=== PATIENT | male | born 1995 | race American Indian/Alaskan Native ===

== ENCOUNTER 2017-07-25 11:28 | Emergency (ER) | payer SELFPAY ==
[2017-07-25 12:19] VITALS: BP 103/84
--- NOTE | 2017-07-25 17:07 | Emergency Department Report ---
Minor Respiratory - HPI Chief Complaint: Sore Throat Stated Complaint: SORE THROAT Time Seen by Provider: 07/25/17 15:13 Duration: 3 Days Pain Location: Throat (sore) Severity: mild Minor Respiratory: Yes Rhinorrhea, Yes Sore Throat, Yes Able to Tolerate Fluids , Yes Cough, Yes Sick Contacts, No Ear Pain, No Hemoptysis, No Chest Pain, No Shortness of Breath, No Fever Other History: This is a 22 y.o. male presents with sore throat and headache for 3 days. He is taking tylenol and theraflu for 1 day. "Several people at work have been sick". Patient states he never had a fever. He increased fluid intake but appetite is decreased. Denies fever, SOB, muscle aches, chest pain, nausea and vomiting. ED Review of Systems ROS: Stated complaint: SORE THROAT Other details as noted in HPI Constitutional: denies: chills, fever ENT: throat pain. denies: ear pain, dental pain, hearing loss, epistaxis, congestion Respiratory: denies: cough, shortness of breath, wheezing Cardiovascular: denies: chest pain, palpitations Gastrointestinal: denies: abdominal pain, nausea, diarrhea Musculoskeletal: denies: back pain, joint swelling, arthralgia Neurological: headache. denies: weakness, paresthesias ED Past Medical Hx - Past Medical History Previous Medical History?: No - Surgical History Past Surgical History?: No - Social History Smoking Status: Never Smoker Substance Use Type: None Minor Respiratory Exam - Exam General: Vital signs noted. No distress. Alert and acting appropriately. HEENT: Yes Pharyngeal Erythema, Yes Moist Mucous Membranes, Yes Rhinorrhea, No Pharyngeal Exudates, No Conjuctival Injection, No Frontal Tenderness, No Maxillary Tenderness Ear: Neither TM Bulge, Neither TM Erythema, Neither EAC Pain, Neither EAC Discharge Neck: No Adenopathy Lungs: Yes Good Air Exchange, No Wheezes, No Ronchi, No Stridor, No Cough, No Labored Respirations, No Retractions, No Use of Accessory Muscles, No Other Abnormal Lung Sounds Heart: Yes Regular, No Murmur Abdomen: Yes Normal Bowel Sounds, No Tenderness, No Peritoneal Signs Skin: No Rash, No Edema Neurologic: Alert and oriented, no deficits. Musculoskeletal: Unremarkable. ED Course Vital Signs 07/25/17 12:16 Temperature 98.5 F Pulse Rate 86 Respiratory 16 Rate Blood Pressure 103/84 O2 Sat by Pulse 99 Oximetry ED Medical Decision Making - Medical Decision Making This is a 22 y.o. male presents with sore throat and headache for 3 days. He is taking tylenol and nyquil minimal improvement. Tolerating fluids and appetite decreased. Obtained rapid strep, negative. Treated for laryngitis and treating outpatient with supportive care. Discussed plan of care with patient and agreed with plan. Discharged home in stable condition. F/U with PCP in 3 days if symptoms are worse.. Critical care attestation.: If time is entered above; I have spent that time in minutes in the direct care of this critically ill patient, excluding procedure time. ED Disposition Clinical Impression: Laryngitis Disposition: DC- TO HOME OR SELFCARE Is pt being admited?: No Does the pt Need Aspirin: No Condition: Stable Instructions: Laryngitis (ED), Upper Respiratory Infection (ED) Additional Instructions: Increase fluid intake. Continue using tylenol and ibuprofen for pain. Vocal rest can help decrease sore throat. Use lasagnes for symptomatic relief. Follow up with Primary Care Provider if symptoms persist beyond 3 days. Referrals: [facility] [Outside] - 3-5 Days [facility] [Outside] - 3-5 Days Time of Disposition: 17:26 Print Language: NORTHER[place] IRISH
== END 2017-07-25 17:34 | disposition home or self-care (01) ==
LOC: ED 11:28
DX: J04.0 Acute laryngitis (principal)
CPT/HCPCS: 87430; 99282

== ENCOUNTER 2019-01-12 02:23 | Emergency (ER) | payer SELFPAY ==
[2019-01-12 02:52] VITALS: BP 121/80
[2019-01-12 03:29] LABS: Basophils % (Auto) 0.7 % (0.0-1.8); Eosinophils # (Auto) 0.3 K/mm3 (0.0-0.4); Eosinophils % (Auto) 4.4 % (0.0-4.3); Lymphocytes # (Auto) 2.8 K/mm3 (1.2-5.4); Lymphocytes % (Auto) 45.3 % (13.4-35.0); Mean Corpuscular HGB Conc 34 % (32-34); Mean Corpuscular Volume 96 fl (84-94); Monocytes # (Auto) 0.8 K/mm3 (0.0-0.8); Monocytes % (Auto) 13.1 % (0.0-7.3); Platelet Count 234 K/mm3 (140-440); Red Blood Count 4.91 M/mm3 (3.65-5.03); Red Cell Distribution Width 13.7 % (13.2-15.2)
[2019-01-12 03:43] LABS: Bilirubin,Urine NEG (Negative); Blood,Urine NEG (Negative); Color,Urine Yellow (Yellow); Mucus,Urine FEW /HPF; Protein,Urine <15 mg/dL mg/dL (Negative); Urobilinogen,Urine < 2.0 mg/dL (<2.0); WBC,Urine < 1.0 /HPF (0.0-6.0)
[2019-01-12 03:45] LABS: Alanine Aminotransferase 11 units/L (7-56); Albumin 4.1 g/dL (3.9-5); BUN/Creatinine Ratio 12; Blood Urea Nitrogen 13 mg/dL (9-20); Calcium 8.9 mg/dL (8.4-10.2); Hemolysis Index 16
[2019-01-12] MEDS ORDERED: PEPCID PO ONE (04:03)
[2019-01-12] MEDS ORDERED: ZOFRAN ODT PO ONE (04:03)
--- NOTE | 2019-01-12 04:11 | Emergency Department Report ---
ED Abdominal Pain HPI - General Chief Complaint: Abdominal Pain Stated Complaint: TOOTHACHE/HEADACHE/VOMITING/ABDOMINAL Time Seen by Provider: 01/12/19 04:01 Source: patient Mode of arrival: Ambulatory Limitations: No Limitations - History of Present Illness Initial Comments: This is a 23-year-old female presents to ED complaining of left upper quadrant abdominal pain that started yesterday morning. Patient states that the security the day before. Patient states that he had one episode of vomiting and no other symptoms. Patient also states that he is taking Motrin earlier for toothache that he's been having for the past 2 days. Patient states toothache is localized to the lower left denture. MD Complaint: abdominal pain Location: LUQ Radiation: none Migration to: no migration Severity scale (0 -10): 4 Quality: aching Consistency: intermittent Context: possible food poisoning Associated Symptoms: vomiting (1 episode). denies: diarrhea, fever, chills, constipation - Related Data Previous Rx's Medication Instructions Recorded Last Taken Type Amoxicillin [Amoxicillin TAB] 875 mg PO BID #14 tablet 01/12/19 Unknown Rx Dicyclomine [Bentyl] 10 mg PO TID #21 capsule 01/12/19 Unknown Rx Famotidine [Pepcid] 20 mg PO BID #20 tablet 01/12/19 Unknown Rx Ondansetron [Zofran ODT TAB] 4 mg PO Q8H #20 tab.rapdis 01/12/19 Unknown Rx Allergies Allergy/AdvReac Type Severity Reaction Status Date / Time No Known Allergies Allergy Verified 07/25/17 12:16 ED Review of Systems ROS: Stated complaint: TOOTHACHE/HEADACHE/VOMITING/ABDOMINAL Other details as noted in HPI Comment: All other systems reviewed and negative ED Past Medical Hx - Past Medical History Previous Medical History?: Yes Hx Asthma: Yes - Surgical History Past Surgical History?: No - Social History Smoking Status: Current Every Day Smoker Substance Use Type: None - Medications Home Medications: Home Medications Medication Instructions Recorded Confirmed Last Taken Type Amoxicillin [Amoxicillin TAB] 875 mg PO BID #14 tablet 01/12/19 Unknown Rx Dicyclomine [Bentyl] 10 mg PO TID #21 capsule 01/12/19 Unknown Rx Famotidine [Pepcid] 20 mg PO BID #20 tablet 01/12/19 Unknown Rx Ondansetron [Zofran ODT TAB] 4 mg PO Q8H #20 tab.rapdis 01/12/19 Unknown Rx ED Physical Exam - General Limitations: No Limitations General appearance: alert, in no apparent distress - Head Head exam: Present: atraumatic, normocephalic - Eye Eye exam: Present: normal appearance - ENT ENT exam: Present: mucous membranes moist - Expanded ENT Exam Expanded Mouth exam: Present: normal external inspection Teeth exam: Present: dental caries (tooth number #15) Throat exam: Positive: normal inspection. Negative: tonsillomegaly, tonsillar exudate, R peritonsillar mass - Neck Neck exam: Present: normal inspection - Respiratory Respiratory exam: Present: normal lung sounds bilaterally. Absent: respiratory distress - Cardiovascular Cardiovascular Exam: Present: regular rate, normal rhythm. Absent: systolic murmur, diastolic murmur, rubs, gallop - GI/Abdominal GI/Abdominal exam: Present: soft, normal bowel sounds. Absent: distended, tenderness, guarding, rebound, mass - Rectal Rectal exam: Present: deferred - Extremities Exam Extremities exam: Present: normal inspection - Back Exam Back exam: Present: normal inspection - Neurological Exam Neurological exam: Present: alert, oriented X3 - Psychiatric Psychiatric exam: Present: normal affect, normal mood - Skin Skin exam: Present: warm, dry, intact, normal color. Absent: rash ED Course Vital Signs 01/12/19 02:45 Temperature 98.5 F Pulse Rate 70 Respiratory 20 Rate Blood Pressure 121/80 O2 Sat by Pulse 97 Oximetry ED Medical Decision Making - Lab Data Result diagrams: 01/12/19 03:09 01/12/19 03:09 Laboratory Last Values WBC 6.2 K/mm3 (4.5-11.0) 01/12/19 03:09 RBC 4.91 M/mm3 (3.65-5.03) 01/12/19 03:09 Hgb 16.0 gm/dl (11.8-15.2) H 01/12/19 03:09 Hct 47.0 % (35.5-45.6) H 01/12/19 03:09 MCV 96 fl (84-94) H 01/12/19 03:09 MCH 33 pg (28-32) H 01/12/19 03:09 MCHC 34 % (32-34) 01/12/19 03:09 RDW 13.7 % (13.2-15.2) 01/12/19 03:09 Plt Count 234 K/mm3 (140-440) 01/12/19 03:09 Lymph % (Auto) 45.3 % (13.4-35.0) H 01/12/19 03:09 [place] % (Auto) 13.1 % (0.0-7.3) H 01/12/19 03:09 Eos % (Auto) 4.4 % (0.0-4.3) H 01/12/19 03:09 Baso % (Auto) 0.7 % (0.0-1.8) 01/12/19 03:09 Lymph # 2.8 K/mm3 (1.2-5.4) 01/12/19 03:09 [place] # 0.8 K/mm3 (0.0-0.8) 01/12/19 03:09 Eos # 0.3 K/mm3 (0.0-0.4) 01/12/19 03:09 Baso # 0.0 K/mm3 (0.0-0.1) 01/12/19 03:09 Seg Neutrophils % 36.5 % (40.0-70.0) L 01/12/19 03:09 Seg Neutrophils # 2.3 K/mm3 (1.8-7.7) 01/12/19 03:09 Sodium 139 mmol/L (137-145) 01/12/19 03:09 Potassium 3.9 mmol/L (3.6-5.0) 01/12/19 03:09 Chloride 101.1 mmol/L (98-107) 01/12/19 03:09 Carbon Dioxide 28 mmol/L (22-30) 01/12/19 03:09 14 mmol/L 01/12/19 03:09 BUN 13 mg/dL (9-20) 01/12/19 03:09 1.1 mg/dL (0.8-1.5) 01/12/19 03:09 Estimated GFR > 60 ml/min 01/12/19 03:09 12 % 01/12/19 03:09 Glucose 97 mg/dL (75-100) 01/12/19 03:09 Calcium 8.9 mg/dL (8.4-10.2) 01/12/19 03:09 0.30 mg/dL (0.1-1.2) 01/12/19 03:09 AST 15 units/L (5-40) 01/12/19 03:09 ALT 11 units/L (7-56) 01/12/19 03:09 96 units/L (35-129) 01/12/19 03:09 7.9 g/dL (6.3-8.2) 01/12/19 03:09 4.1 g/dL (3.9-5) 01/12/19 03:09 1.1 % 01/12/19 03:09 45 units/L (13-60) 01/12/19 03:09 Yellow (Yellow) 01/12/19 Unknown Clear (Clear) 01/12/19 Unknown 6.0 (5.0-7.0) 01/12/19 Unknown Ur Specific [place] 1.019 (1.003-1.030) 01/12/19 Unknown <15 mg/dl mg/dL (Negative) 01/12/19 Unknown Neg mg/dL (Negative) 01/12/19 Unknown Neg mg/dL (Negative) 01/12/19 Unknown Neg (Negative) 01/12/19 Unknown Neg (Negative) 01/12/19 Unknown Neg (Negative) 01/12/19 Unknown < 2.0 mg/dL (<2.0) 01/12/19 Unknown Ur Leukocyte Esterase Neg (Negative) 01/12/19 Unknown < 1.0 /HPF (0.0-6.0) 01/12/19 Unknown 1.0 /HPF (0.0-6.0) 01/12/19 Unknown Few /HPF 01/12/19 Unknown - Medical Decision Making 23-year-old male presents with mild gastritis and dental pain. Discussed patient and his mother taking motion and systemic concussive gastritis. Patient received Pepcid and Zofran in the ED. Does no abnormality in the labs. CBC, CMP, urinalysis all obtained. All labs within normal limits. Discussed this findings with the mother and the patient. Discussed with patient to take Tylenol as needed for dental pain Discuss to not take Motrin on an empty stomach. Discussed the patient will continue antibiotic therapy for dental caries. Discussed dental follow-up. Discuss follow-up with a primary care physician. Vital signs are normal patient is in no acute distress. Critical care attestation.: If time is entered above; I have spent that time in minutes in the direct care of this critically ill patient, excluding procedure time. ED Disposition Clinical Impression: Gastritis, Dental caries Disposition: TO HOME OR SELFCARE Is pt being admited?: No Does the pt Need Aspirin: No Condition: Stable Instructions: Gastritis (ED), Gastroenteritis (ED), Toothache (ED) Additional Instructions: Make sure to follow up with the primary care physician as discussed. Take all your medications as you've been prescribed. If you have any worsening symptoms or develop new symptoms please return to ED immediately. Prescriptions: Amoxicillin [Amoxicillin TAB] 875 mg PO BID #14 tablet Dicyclomine [Bentyl] 10 mg PO TID #21 capsule Famotidine [Pepcid] 20 mg PO BID #20 tablet Ondansetron [Zofran ODT TAB] 4 mg PO Q8H #20 tab.[email or web address] Referrals: [facility] [Outside] - 3-5 Days [facility] [Outside] - 3-5 Days [facility] [Outside] - 3-5 Days [facility] [Outside] - 3-5 Days Forms: Accompanied Note, Work/School Release Form(ED) Time of Disposition: 04:20
== END 2019-01-12 04:44 | disposition home or self-care (01) ==
LOC: ED 02:23
DX: K29.70 Gastritis, unspecified, without bleeding (principal); K02.9 Dental caries, unspecified; J45.909 Unspecified asthma, uncomplicated; F17.200 Nicotine dependence, unspecified, uncomplicated; Z79.899 Other long term (current) drug therapy
CPT/HCPCS: 36415; 80053; 81001; 83690; 85025; 99283; Q0162

== ENCOUNTER 2019-04-27 07:13 | Emergency (ER) | payer SELFPAY ==
[2019-04-27] MEDS ORDERED: AMOXICILLIN 500 MG CAP PO ONE (07:45)
[2019-04-27] MEDS ORDERED: IBUPROFEN 800 MG TAB PO ONE (07:45)
[2019-04-27 07:59] VITALS: BP 129/89
--- NOTE | 2019-04-27 08:03 | Emergency Department Report ---
ED ENT HPI - General Chief complaint: Dental/Oral Stated complaint: TOOTHACHE/HEADACHE Time Seen by Provider: 04/27/19 07:28 Source: patient Mode of arrival: Ambulatory Limitations: No Limitations - History of Present Illness Initial comments: The patient is a 24-year-old male who presents to ED complaining of pain in the left side of his mouth x today . Patient states that the pain started symptoms started around 3 AM today, he states that the pain is exacerbated by eating and opening of the mouth. Patient states that it radiates towards ear. Patient describes a as a throbbing, pressure-like sensation. Patient states otherwise well and has no other complaints. Patient denies any recent dental work Patient has had no fevers and no chills. No chest pain, no shortness of breath. No abdominal pain. No shortness of breath or recent trauma to the face. MD complaint: tooth pain - Related Data Previous Rx's Medication Instructions Recorded Last Taken Type Dicyclomine [Bentyl] 10 mg PO TID #21 capsule 01/12/19 Unknown Rx Famotidine [Pepcid] 20 mg PO BID #20 tablet 01/12/19 Unknown Rx Ondansetron [Zofran ODT TAB] 4 mg PO Q8H #20 tab.rapdis 01/12/19 Unknown Rx Amoxicillin [Amoxicillin TAB] 875 mg PO BID #14 tablet 04/27/19 Unknown Rx Ibuprofen [Motrin 800 MG tab] 800 mg PO TID #30 tablet 04/27/19 Unknown Rx Allergies Allergy/AdvReac Type Severity Reaction Status Date / Time No Known Allergies Allergy Verified 07/25/17 12:16 ED Dental HPI - General Chief complaint: Dental/Oral Stated complaint: TOOTHACHE/HEADACHE Time Seen by Provider: 04/27/19 07:28 Source: patient Mode of arrival: Ambulatory Limitations: No Limitations - Related Data Previous Rx's Medication Instructions Recorded Last Taken Type Dicyclomine [Bentyl] 10 mg PO TID #21 capsule 01/12/19 Unknown Rx Famotidine [Pepcid] 20 mg PO BID #20 tablet 01/12/19 Unknown Rx Ondansetron [Zofran ODT TAB] 4 mg PO Q8H #20 tab.rapdis 01/12/19 Unknown Rx Amoxicillin [Amoxicillin TAB] 875 mg PO BID #14 tablet 04/27/19 Unknown Rx Ibuprofen [Motrin 800 MG tab] 800 mg PO TID #30 tablet 04/27/19 Unknown Rx Allergies Allergy/AdvReac Type Severity Reaction Status Date / Time No Known Allergies Allergy Verified 07/25/17 12:16 ED Review of Systems ROS: Stated complaint: TOOTHACHE/HEADACHE Other details as noted in HPI Comment: All other systems reviewed and negative ED Past Medical Hx - Past Medical History Previous Medical History?: Yes Hx Asthma: Yes - Surgical History Past Surgical History?: No - Social History Smoking Status: Never Smoker - Medications Home Medications: Home Medications Medication Instructions Recorded Confirmed Last Taken Type Dicyclomine [Bentyl] 10 mg PO TID #21 capsule 01/12/19 Unknown Rx Famotidine [Pepcid] 20 mg PO BID #20 tablet 01/12/19 Unknown Rx Ondansetron [Zofran ODT TAB] 4 mg PO Q8H #20 tab.rapdis 01/12/19 Unknown Rx Amoxicillin [Amoxicillin TAB] 875 mg PO BID #14 tablet 04/27/19 Unknown Rx Ibuprofen [Motrin 800 MG tab] 800 mg PO TID #30 tablet 04/27/19 Unknown Rx ED Physical Exam - General Limitations: No Limitations General appearance: alert, in no apparent distress - Head Head exam: Present: atraumatic, normocephalic - Eye Eye exam: Present: normal appearance - ENT ENT exam: Present: mucous membranes moist, other ( no gingival erythema, swelling or bleeding) - Neck Neck exam: Present: normal inspection - Respiratory Respiratory exam: Present: normal lung sounds bilaterally. Absent: respiratory distress - Cardiovascular Cardiovascular Exam: Present: regular rate, normal rhythm. Absent: systolic murmur, diastolic murmur, rubs, gallop - GI/Abdominal GI/Abdominal exam: Present: soft, normal bowel sounds - Rectal Rectal exam: Present: deferred - Extremities Exam Extremities exam: Present: normal inspection - Back Exam Back exam: Present: normal inspection - Neurological Exam Neurological exam: Present: alert, oriented X3 - Psychiatric Psychiatric exam: Present: normal affect, normal mood - Skin Skin exam: Present: warm, dry, intact, normal color. Absent: rash ED Course Vital Signs 04/27/19 07:14 Temperature 98.4 F Pulse Rate 67 Respiratory 18 Rate Blood Pressure 122/86 O2 Sat by Pulse 98 Oximetry ED Medical Decision Making - Medical Decision Making 24-year-old male who presents with left-sided Facial pain secondary to odontogenic caries ED course: Patient received 1000 mg of amoxicillin, 800 mg Motrin Odontogenic infection versus ear infection. Based upon history and physical examination, pain is a result of an infection of tooth number 18 and that the pain Pt feels on the left side of his face and towards the ear is referred pain from this infectious process. Pt has no evidence of acute impending airway compromise. At this point, patient will be discharged home on some antibiotics and pain trial, she will do well with an outpatient course of antibiotics. Follow up with the Dental Clinic as referred Vital signs are normal patient is in no acute distress. Pt had an effect uneventful ED stay Critical care attestation.: If time is entered above; I have spent that time in minutes in the direct care of this critically ill patient, excluding procedure time. ED Disposition Clinical Impression: Pain due to dental caries Disposition: TO HOME OR SELFCARE Is pt being admited?: No Does the pt Need Aspirin: No Condition: Stable Instructions: Dental Caries (ED), Toothache (ED) Additional Instructions: Make sure to follow up with the primary care physician as discussed. Take all your medications as you've been prescribed. If you have any worsening symptoms or develop new symptoms please return to ED immediately. Prescriptions: Amoxicillin [Amoxicillin TAB] 875 mg PO BID #14 tablet Ibuprofen [Motrin 800 MG tab] 800 mg PO TID #30 tablet Referrals: PRIMARY CARE,MD [Primary Care Provider] - 3-5 Days [facility] [Outside] - 3-5 Days [facility] [Outside] - 3-5 Days Forms: Work/School Release Form(ED) Time of Disposition: 08:08
== END 2019-04-27 08:25 | disposition home or self-care (01) ==
LOC: ED 07:13
DX: K02.9 Dental caries, unspecified (principal); J45.909 Unspecified asthma, uncomplicated